=== PATIENT | female | born 1980 | race Caucasian/White ===

== ENCOUNTER 2021-06-26 13:54 | Outpatient (CLI) | payer MEDICARE, MEDICAID ==
[2021-06-26 15:43] LABS: #Basophils 0.1 10x3/uL (0.0-0.2); #Monocytes 0.4 10x3/uL (0.0-1.1); #Neutrophils 2.7 10x3/uL (1.5-8.4); %Basophils 0.9 % (0.0-2.0); %Eosinophils 0.7 % (0.0-6.0); %Monocytes 7.8 % (0.0-10.0); %Neutrophils 49.4 % (40.0-75.0); Hemoglobin 10.7 g/dL (12.0-15.5); Mean Corpuscular HGB CONC 32.4 g/dL (32.0-36.0); Mean Corpuscular Hemoglobin 29.6 pg (27.0-33.0); Mean Corpuscular Volume 91.2 fl (81.6-98.3); Mean Platelet Volume 9.6 fl (7.4-10.4); Platelet Count 306 10x3/uL (150-450); RBC Distribution Width 13.2 % (11.5-14.5); Red Blood Cell (RBC) Count 3.62 10x6/uL (3.90-5.03); White Blood Cell (WBC) Count 5.5 10x3/uL (3.5-10.5)
[2021-06-26 15:57] LABS: BHCG - Serum Negative (NEGATIVE); Pregs Control Background? CLEAR/WHITE (CLR/WHITE); Pregs Control Bar Appear? YES (CONTROL BAR)
[2021-06-27 08:32] LABS: SARS-CoV-2 PCR by NAA Not Detected (NotDetected)
== END 2021-06-26 13:55 | disposition home or self-care (01) ==
LOC: LABBT 13:54
PROVIDERS: ATTEND Orthopaedic Surgery
DX: Z01.812 Encounter for preprocedural laboratory examination (principal); G56.21 Lesion of ulnar nerve, right upper limb; M71.321 Other bursal cyst, right elbow; Z20.822 Contact with and (suspected) exposure to COVID-19
CPT/HCPCS: 84703; 85025; U0003; U0005

== ENCOUNTER 2021-07-01 07:57 | Day surgery (SDC) | payer MEDICARE, MEDICAID ==
[2021-06-27 10:56] VITALS: BMI 20.7
[2021-07-01] MEDS ORDERED: Lidocaine 1% w/Epinephrine 1:100K 20 ML VIAL ONE (09:48)
[2021-07-01] MEDS ORDERED: Midazolam HCl 2 mg/2 ml Vial ONE (10:04)
[2021-07-01] MEDS ORDERED: Fentanyl 100 MCG/2 ML VIAL ONE (10:04)
[2021-07-01] MEDS ORDERED: Lidocaine 1% PF 5 ML VIAL ONE (10:11)
[2021-07-01] MEDS ORDERED: PROPOFOL 200 MG/20 ML VIAL ONE (10:11)
[2021-07-01] MEDS ORDERED: Meperidine HCl/PF 25 MG/ML VIAL ONE (11:29)
== END 2021-07-01 13:15 | disposition home or self-care (01) ==
LOC: SDC 07:57
PROVIDERS: ATTEND Orthopaedic Surgery
PROC: 01S40ZZ Reposition Ulnar Nerve, Open Approach (ICD-10-PCS; principal; 2021-07-01)
DX: G56.21 Lesion of ulnar nerve, right upper limb (principal); S42.40 Unspecified fracture of lower end of humerus; G56.01 Carpal tunnel syndrome, right upper limb; J45.909 Unspecified asthma, uncomplicated; G43.909 Migraine, unspecified, not intractable, without status migrainosus; D53.9 Nutritional anemia, unspecified; F17.210 Nicotine dependence, cigarettes, uncomplicated; G89.29 Other chronic pain; Z88.2 Allergy status to sulfonamides; Z88.3 Allergy status to other anti-infective agents
CPT/HCPCS: J2175; J2250; J3010

== ENCOUNTER 2021-10-08 14:33 | Outpatient (CLI) | payer MEDICARE, MEDICAID ==
[2021-10-08 15:30] LABS: Hemoglobin 10.9 g/dL (12.0-15.5); Mean Corpuscular HGB CONC 31.8 g/dL (32.0-36.0); Mean Corpuscular Hemoglobin 27.9 pg (27.0-33.0); Mean Corpuscular Volume 87.7 fl (81.6-98.3); Mean Platelet Volume 8.8 fl (7.4-10.4); Platelet Count 358 10x3/uL (150-450); Red Blood Cell (RBC) Count 3.91 10x6/uL (3.90-5.03); White Blood Cell (WBC) Count 9.7 10x3/uL (3.5-10.5)
[2021-10-08 15:52] LABS: Anion Gap 11 mmol/L (10-20); BUN (Urea Nitrogen) 17 mg/dL (7.0-18.7); Calc. Creatinine Clearance 0 mL/min (70-130); Calcium 9.5 mg/dL (7.8-10.44); Carbon Dioxide 29 mmol/L (22-29); Chloride 103 mmol/L (98-107); Glucose 92 mg/dL (70-105); Potassium 3.9 mmol/L (3.5-5.1); Sodium 139 mmol/L (136-145)
[2021-10-08 23:50] LABS: SARS-CoV-2 PCR by NAA Not Detected (NotDetected)
== END 2021-10-08 14:34 | disposition home or self-care (01) ==
LOC: LABBT 14:33
PROVIDERS: ATTEND Neurological Surgery
DX: Z01.818 Encounter for other preprocedural examination (principal); M54.12 Radiculopathy, cervical region; Z20.822 Contact with and (suspected) exposure to COVID-19
CPT/HCPCS: 80048; 85027; U0003; U0005; 93005; 93010

== ENCOUNTER 2021-10-13 06:56 | Day surgery (SDC) | payer MEDICARE, MEDICAID ==
[2021-10-02 11:26] VITALS: BMI 20.7
[2021-10-13] MEDS ORDERED: Midazolam HCl 2 mg/2 ml Vial ONE (08:17)
[2021-10-13] MEDS ORDERED: Dexmedetomidine 200 MCG/2 ML VIAL ONE (08:31)
[2021-10-13] MEDS ORDERED: Fentanyl 100 MCG/2 ML VIAL ONE ×3 (08:31→11:07)
[2021-10-13] MEDS ORDERED: ceFAZolin 2 GM/Dextrose 50 ML IVPB ONE (08:37)
[2021-10-13] MEDS ORDERED: Lidocaine 1% PF 5 ML VIAL ONE (09:22)
[2021-10-13] MEDS ORDERED: PROPOFOL 200 MG/20 ML VIAL ONE (09:22)
[2021-10-13] MEDS ORDERED: PHENYLEPHRINE-NS 100 MCG/ML 10 ML SYRINGE ONE (09:22)
[2021-10-13] MEDS ORDERED: Ondansetron PF 4 MG/2 ML Vial ONE (09:22)
[2021-10-13] MEDS ORDERED: Glycopyrrolate 0.2 MG/ML 5 ML SYRINGE ONE (09:22)
[2021-10-13] MEDS ORDERED: Rocuronium Bromide 10 MG/ML (10ML VIAL) ONE (09:22)
[2021-10-13] MEDS ORDERED: Dexamethasone 20 MG/5 ML VIAL ONE (09:22)
[2021-10-13] MEDS ORDERED: ePHEDrine 50 MG/ML VIAL ONE (09:22)
== END 2021-10-13 13:14 | disposition home or self-care (01) ==
LOC: SDC 06:56
PROVIDERS: ATTEND Neurological Surgery
PROC: 0RG10A0 Fusion of Cervical Vertebral Joint with Interbody Fusion Device, Anterior Approach, Anterior Column, Open Approach (ICD-10-PCS; principal; 2021-10-13)
DX: M50.122 Cervical disc disorder at C5-C6 level with radiculopathy (principal); G89.29 Other chronic pain; Z79.899 Other long term (current) drug therapy; Z88.2 Allergy status to sulfonamides; Z88.8 Allergy status to other drugs, medicaments and biological substances
CPT/HCPCS: 76000; C1713; C1776; J0690; J1100; J2250; J2405; J2704; J3010; J3490

== ENCOUNTER 2021-10-28 14:33 | Outpatient (CLI) | payer MEDICARE, MEDICAID | END 2021-10-28 14:34 | disposition home or self-care (01) | LOC: TBSIIMAG 14:33 | PROVIDERS: ATTEND Neurological Surgery | DX: M54.12 Radiculopathy, cervical region (principal); Z98.1 Arthrodesis status | CPT/HCPCS: 72040 ==

== ENCOUNTER 2022-10-06 09:21 | Emergency (ER) | payer OTHER, MEDICAID ==
[2022-10-06] MEDS ORDERED: Ondansetron PF 4 MG/2 ML Vial ONE (09:38)
[2022-10-06] MEDS ORDERED: Morphine 4 MG/ML VIAL ONE (09:38)
[2022-10-06 10:14] LABS: #Eosinphils 0.1 thou/uL (0.0-0.7); #Lymphocytes 1.9 thou/uL (1.20-3.40); #Monocytes 0.5 thou/uL (0.11-0.59); #Neutrophils 4.5 thou/uL (1.40-6.50); %Basophils 0.5 % (0.0-1.0); %Monocytes 6.9 % (0.0-10.0); %Neutrophils 64.6 % (42.0-75.0); Hemoglobin 8.9 g/dL (12.0-16.0); Mean Corpuscular HGB CONC 31.9 g/dL (32.0-36.0); Mean Corpuscular Hemoglobin 24.9 pg (27.0-31.0); Mean Platelet Volume 6.9 fL (7.4-10.4); Platelet Count 347 10x3/uL (130-400); RBC Distribution Width 14.4 % (11.5-14.5); Red Blood Cell (RBC) Count 3.58 mill/uL (4.20-5.40); White Blood Cell (WBC) Count 6.9 10x3/uL (4.8-10.8)
[2022-10-06 10:17] LABS: BHCG - Serum Negative (NEGATIVE); Pregs Control Background? CLEAR/WHITE (CLR/WHITE); Pregs Control Bar Appear? YES (CONTROL BAR)
[2022-10-06 10:27] LABS: Prothrombin Time 13.6 sec (12.0-14.7)
[2022-10-06 10:37] LABS: ALT (SGPT) 16 U/L (8-55); AST (SGOT) 21 U/L (5-34); Albumin 3.8 g/dL (3.5-5.0); Alcohol Less than 10 mg/dL (Less than 10); Alkaline Phosphatase 63 U/L (40-110); Anion Gap 10 mmol/L (10-20); BUN (Urea Nitrogen) 17 mg/dL (7.0-18.7); Bilirubin, Total 0.5 mg/dL (0.2-1.2); Calc. Creatinine Clearance 0 mL/min (70-130); Calcium 8.2 mg/dL (7.8-10.44); Carbon Dioxide 24 mmol/L (22-29); Chloride 107 mmol/L (98-107); Estimated GFR 103; Globulin 2.8 g/dL (2.4-3.5); Glucose 83 mg/dL (70-105); Lipase 22 U/L (8-78); Potassium 3.9 mmol/L (3.5-5.1); Protein, Total 6.6 g/dL (6.0-8.3); Sodium 137 mmol/L (136-145)
[2022-10-06] MEDS ORDERED: Ketorolac Tromethamine 30 MG/ML VIAL ONE (10:43)
[2022-10-06] MEDS ORDERED: HYDROcodone/Acetaminophen 10/325 mg Tablet ONE (11:42)
[2022-10-06] MEDS ORDERED: Iopamidol-370 76% 500 ML 1 ML ONE (12:58)
== END 2022-10-06 14:00 | disposition home or self-care (01) ==
LOC: ERS 09:21
DX: S22.080A Wedge compression fracture of T11-T12 vertebra, initial encounter for closed fracture (principal); F17.210 Nicotine dependence, cigarettes, uncomplicated; V89.2XXA Person injured in unspecified motor-vehicle accident, traffic, initial encounter
CPT/HCPCS: 70450; 71045; 71260; 72125; 72170; 74177; 80053; 80307; 83605; 83690; 84703; 85025; 85610; 85730; 96374; 96375; G0390; J1885; J2270; J2405; Q9967

== ENCOUNTER 2022-10-28 12:23 | Outpatient (CLI) | payer OTHER, MEDICAID | END 2022-10-28 12:24 | disposition home or self-care (01) | LOC: TBSIIMAG 12:23 | PROVIDERS: ATTEND Neurological Surgery | DX: S22.089D Unspecified fracture of T11-T12 vertebra, subsequent encounter for fracture with routine healing (principal) | CPT/HCPCS: 72070; 72100 ==

== ENCOUNTER 2022-12-02 14:18 | Outpatient (CLI) | payer MEDICAID, OTHER | END 2022-12-02 14:19 | disposition home or self-care (01) | LOC: TBSIIMAG 14:18 | PROVIDERS: ATTEND Neurological Surgery | DX: S22.089D Unspecified fracture of T11-T12 vertebra, subsequent encounter for fracture with routine healing (principal); M41.9 Scoliosis, unspecified | CPT/HCPCS: 72072; 72100 ==

== ENCOUNTER 2024-02-07 | Emergency (ER) | payer MEDICAID, MEDICARE, SELFPAY ==
[2024-02-07] MEDS ORDERED: Aspirin/APAP/Caffeine Tab (Excedrin Migraine) PO SCH (02:15)
== END 2024-02-07 02:43 | disposition home or self-care (01) ==
LOC: ERS
DX: S22.080A Wedge compression fracture of T11-T12 vertebra, initial encounter for closed fracture (principal); F17.210 Nicotine dependence, cigarettes, uncomplicated; Y04.8XXA Assault by other bodily force, initial encounter
CPT/HCPCS: 99284